=== PATIENT | male | born 1965 | race Caucasian/White ===

== ENCOUNTER 2020-07-08 06:21 | Inpatient (IN) | payer BC ==
[2020-07-08] VITALS (14 sets, daily range): BP systolic 112–145; BP diastolic 63–90
[~2020-07-08] VITALS: Ht 190.5 cm; Wt 104.5 kg
[2020-07-08] MEDS ORDERED: aspirin 81mg tab.chew PO ONE (06:30)
[2020-07-08 07:08] LABS: BASOPHILS # (AUTO) 0.1 X10'3 (0-0.2); BASOPHILS % (AUTO) 1.2 % (0-1); EOSINOPHILS # (AUTO) 0.2 X10'3 (0-0.9); EOSINOPHILS % (AUTO) 3.4 % (0-6); HEMATOCRIT 48.7 % (42.0-52.0); HEMOGLOBIN 16.6 g/dl (14.0-17.9); LYMPHOCYTES # (AUTO) 1.7 X10'3 (1.1-4.8); LYMPHOCYTES % (AUTO) 31.4 % (21-51); MEAN CORPUSCULAR HEMOGLOBIN 30.1 PG (27.0-31.0); MEAN CORPUSCULAR VOLUME 88.4 FL (78-98); MEAN PLATELET VOLUME 8.7 FL (7.4-10.4); MONOCYTES # (AUTO) 0.4 X10'3 (0-0.9); MONOCYTES % (AUTO) 8.1 % (2-12); NEUTROPHILS % (AUTO) 55.9 % (42-75); PLATELET COUNT 158 X10'3 (140-440); RED BLOOD COUNT 5.51 X10'6 (4.70-6.10); WHITE BLOOD COUNT 5.3 X10'3 (4.5-11.0)
[2020-07-08 07:14] LABS: ALANINE AMINOTRANSFERASE 28 U/L (12-78); ALBUMIN 4.2 G/DL (3.4-5.0); ALBUMIN/GLOBULIN RATIO 1.3 (1.1-1.5); ALKALINE PHOSPHATASE 99 IU/L (46-116); ANION GAP 9 (8-16); ASPARTATE AMINO TRANSFERASE 14 U/L (10-37); BILIRUBIN,TOTAL 0.4 MG/DL (0.1-1.0); BLOOD UREA NITROGEN 14 MG/DL (7-18); BUN/CREATININE RATIO 14.7 (5.4-32.0); CALCIUM 9.5 MG/DL (8.5-10.1); CHLORIDE 104 MMOL/L (99-107); CREATININE 0.95 MG/DL (0.60-1.10); GLUCOSE 113 MG/DL (70-104); POTASSIUM 3.9 MMOL/L (3.5-5.1); SODIUM 143 MMOL/L (135-145); TOTAL CARBON DIOXIDE 30.2 MMOL/L (24-32); TOTAL PROTEIN 7.4 G/DL (6.4-8.2); eGFR 83 ML/MIN
[2020-07-08 07:22] LABS: MAGNESIUM 1.8 MG/DL (1.5-2.4)
[2020-07-08] MEDS ORDERED: BENA1TAB88 PO (08:22)
[2020-07-08] MEDS ORDERED: normal saline 1000ml 1,000 ML IV SCH ×2 (08:50→14:20)
[2020-07-08] MEDS ORDERED: magnesium Cl slow-release 64mg tablet PO PRN (08:50)
[2020-07-08] MEDS ORDERED: mag hydrox/Alum hydrox/simeth 30ml oral suspension PO PRN (08:50)
[2020-07-08] MEDS ORDERED: magnesium hydroxide 30ml (MOM) UD suspension PO PRN (08:50)
[2020-07-08] MEDS ORDERED: potassium Cl 40MEQ/1/2NS 520ml 520 ML IV PRN ×2 (08:50)
[2020-07-08] MEDS ORDERED: magnesium 4gm in 100ml NS 100 ML IV PRN (08:50)
[2020-07-08] MEDS ORDERED: diphenhydrAMINE 25mg capsule PO PRN (08:50)
[2020-07-08] MEDS ORDERED: aminophylline 250mg/10ml inj. IV PRN (08:50)
[2020-07-08] MEDS ORDERED: acetaminophen 325mg tablet PO PRN ×2 (08:50)
[2020-07-08] MEDS ORDERED: magnesium 2GM in 50ml NS 50 ML IV PRN (08:50)
[2020-07-08] MEDS ORDERED: nitroGLYCERIN 0.4mg SUBLingual tab SL PRN (08:50)
[2020-07-08] MEDS ORDERED: potassium Cl 20 mEq SR tablet PO PRN ×2 (08:50)
[2020-07-08] MEDS ORDERED: metoprolol tartrate 1mg/ml inj IV PRN (08:50)
[2020-07-08] MEDS ORDERED: ondansetron/PF 4mg/2ml inj IV PRN ×2 (08:50→14:20)
[2020-07-08] MEDS ORDERED: bisacodyl 10mg suppository rectal RC PRN (08:50)
[2020-07-08] MEDS ORDERED: acetaminophen 650mg rectal suppository RC PRN (08:50)
[2020-07-08] MEDS ORDERED: regadenoson 0.4mg/5ml syringe IV PRN (08:50)
[2020-07-08 09:21] LABS: HEMOGLOBIN A1C 5.7 % (4.5-6.2)
[2020-07-08 10:05] LABS: CLARITY,URINE CLEAR (Clear); COLOR,URINE YELLOW (Yellow); GLUCOSE, URINE NEGATIVE (Neg); KETONES,URINE NEGATIVE (Neg); LEUKOCYTE ESTERASE ,URINE NEGATIVE (Neg); NITRITES, URINE NEGATIVE (Neg); OCCULT BLOOD,URINE TRACE-INTACT (Neg); PROTEIN,URINE NEGATIVE (Neg); UROBILINOGEN,URINE 0.2 E.U/dL (0.2-1.0)
[2020-07-08 10:08] LABS: UA COLLECTION TYPE NON-SPECIFIED
[2020-07-08 10:14] LABS: BACTERIA,URINE 1+ /HPF (Neg); RBC,URINE 0-2 /HPF (0-2); SQUAMOUS EPITHELIAL CELL,UR FEW /LPF (FEW); WBC,URINE 0-4 /HPF (0-4)
--- NOTE | 2020-07-08 10:18 | NUR ---
Reported 3 hour trop result of 20.[address] Galindo.
[2020-07-08] MEDS ORDERED: heparin 25,000 UNIT/250ml bag 250 ML IV SCH ×2 (10:20→10:45)
[2020-07-08] MEDS: atorvastatin 20mg tablet PO SCH (10:20)
[2020-07-08] MEDS ORDERED: heparin 10,000 units/1 ML INJ IV PRN ×2 (10:20→10:45)
[2020-07-08] MEDS ORDERED: heparin 10,000 units/1 ML INJ IV ONE ×2 (10:20→10:45)
[2020-07-08] MEDS: tirofiban 5mg in NS 100mL 100 ML IV SCH ×2 (11:13→12:40)
--- NOTE | 2020-07-08 11:18 | NUR ---
Pt at this time states no chest pain at this time. Pt stated chest pain resided two hours ago 3/10 pressure on left side of chest.
[2020-07-08 11:44] LABS: PARTIAL THROMBOPLASTIN TIME 131 SECONDS (22-32)
--- NOTE | 2020-07-08 11:46 | NUR ---
Received report from TERENCE Cuenca from ED. Awaiting patient arrival to room 3014A.
[2020-07-08] MEDS ORDERED: fentaNYL/PF 50MCG/1 ML 2ML syringe ONE (12:45)
[2020-07-08] MEDS ORDERED: midazolam 1 mg/ML 2ml injection ONE ×2 (12:45→13:23)
[2020-07-08] MEDS ORDERED: LIDOcaine 1% (10mg/ml)w/preservative injection 20ml MDV ONE (12:45)
[2020-07-08] MEDS ORDERED: nitroGLYCERIN-Tridil 50MG/D5W 250 ML IV ONE (12:45)
[2020-07-08] MEDS ORDERED: verapamil 2.5 mg/ml inj IV ONE (12:45)
[2020-07-08] MEDS ORDERED: heparin 1,000unit/ml 10ml vial 10 ML ONE (12:46)
[2020-07-08] MEDS ORDERED: iohexol 350MG/ML 100ml bottle IV ONE (12:46)
--- NOTE | 2020-07-08 12:55 | NUR ---
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
[2020-07-08] MEDS ORDERED: diphenhydrAMINE 50 mg/ml inj ONE (13:08)
--- NOTE | 2020-07-08 13:08 | NUR ---
Paged Dr. Galindo regarding critical result of 6hr. trop 51.06 PAGER ID: [phone] MESSAGE: [phone]. [place]. Critical results of 6hr trop 51.06. Patient at photo lab technician now. Thank you. Paola PRATT x [phone]
[2020-07-08] MEDS ORDERED: HYDROcodone/acetaminophen 5mg/325mg tablet PO PRN (14:20)
[2020-07-08] MEDS ORDERED: proCHLORperazine 10 MG/2 ml inj IV PRN (14:20)
[2020-07-08] MEDS ORDERED: HYDROcodone/acetaminophen 10/325mg tab PO PRN (14:20)
[2020-07-08] MEDS ORDERED: OXAZEpam 15mg capsule PO PRN (14:20)
--- NOTE | 2020-07-08 18:43 | NUR ---
Problems reprioritized. Patient report given, questions answered & plan of care reviewed with TERENCE Tejeda. Patient stable at transfer of care.
--- NOTE | 2020-07-08 18:47 | NUR ---
[place] documentation: I have reviewed and agree with all interventions, assessments performed and documented by TERENCE Shearer.
--- NOTE | 2020-07-08 18:48 | NUR ---
[place] Medication Administration: For this medication-pass time frame, all medication were reviewed, dispensed, administered and documented per hospital policy by TERENCE Shearer.
--- NOTE | 2020-07-08 19:07 | NUR ---
Patient in room PCU 3014. I have received report from Paola PRATT and had the opportunity to ask questions and assume patient care.
[2020-07-08] MEDS: K and/or MAG REPLACEMENT MC SCH (20:00)
[2020-07-08] MEDS ORDERED: heparin, porcine 5000 units/ml vial SQ SCH (20:00)
--- NOTE | 2020-07-08 21:15 | NUR ---
Patient found to still have radial band in place on right wrist. Radial band removed, strong pulse, good sensation, and good movement, no bleeding, no hematoma.
[2020-07-09 02:00] VITALS: BP 130/79
[2020-07-09 06:00] VITALS: BP 119/79
--- NOTE | 2020-07-09 06:08 | NUR ---
Problems reprioritized. Patient report given, questions answered & plan of care reviewed with Paola PRATT and Loan PRATT.
[2020-07-09 06:31] LABS: BASOPHILS % (AUTO) 0.7 % (0-1); EOSINOPHILS # (AUTO) 0.1 X10'3 (0-0.9); EOSINOPHILS % (AUTO) 2.3 % (0-6); HEMATOCRIT 48.3 % (42.0-52.0); HEMOGLOBIN 16.4 g/dl (14.0-17.9); LYMPHOCYTES # (AUTO) 1.9 X10'3 (1.1-4.8); LYMPHOCYTES % (AUTO) 31.1 % (21-51); MEAN CORPUSCULAR HEMOGLOBIN 29.9 PG (27.0-31.0); MEAN CORPUSCULAR HGB CONC 33.9 g/dL (33.0-36.5); MEAN CORPUSCULAR VOLUME 88.3 FL (78-98); MEAN PLATELET VOLUME 8.7 FL (7.4-10.4); MONOCYTES # (AUTO) 0.5 X10'3 (0-0.9); MONOCYTES % (AUTO) 7.6 % (2-12); NEUTROPHILS # (AUTO) 3.6 X10'3 (1.8-7.7); NEUTROPHILS % (AUTO) 58.3 % (42-75); PLATELET COUNT 152 X10'3 (140-440); RED BLOOD COUNT 5.47 X10'6 (4.70-6.10); RED CELL DISTRIBUTION WIDTH 13.3 % (11.5-14.5); WHITE BLOOD COUNT 6.1 X10'3 (4.5-11.0)
--- NOTE | 2020-07-09 06:34 | NUR ---
Patient in room PCU 3014. I have received report from TERENCE Tejeda and had the opportunity to ask questions and assume patient care. Patient awake in bed and in no acute distress.
[2020-07-09 06:50] LABS: ALANINE AMINOTRANSFERASE 34 U/L (12-78); ALBUMIN 3.7 G/DL (3.4-5.0); ALBUMIN/GLOBULIN RATIO 1.2 (1.1-1.5); ALKALINE PHOSPHATASE 89 IU/L (46-116); ANION GAP 7 (8-16); ASPARTATE AMINO TRANSFERASE 55 U/L (10-37); BILIRUBIN,TOTAL 0.8 MG/DL (0.1-1.0); BLOOD UREA NITROGEN 11 MG/DL (7-18); BUN/CREATININE RATIO 12.8 (5.4-32.0); CALCIUM 8.8 MG/DL (8.5-10.1); CHLORIDE 104 MMOL/L (99-107); CHOL/HDL RATIO 3.6 (0.00-4.99); CHOLESTEROL 189 MG/DL (0-200); CREATININE 0.86 MG/DL (0.60-1.10); GLUCOSE 99 MG/DL (70-104); HDL CHOLESTEROL 52 MG/DL (35-60); LDL CHOLESTEROL 119 MG/DL (50-100); POTASSIUM 4.1 MMOL/L (3.5-5.1); SODIUM 139 MMOL/L (135-145); TOTAL CARBON DIOXIDE 28.1 MMOL/L (24-32); TOTAL PROTEIN 6.8 G/DL (6.4-8.2); TRIGLYCERIDES 117 MG/DL (20-135); eGFR > 90 ML/MIN
[2020-07-09] MEDS: atorvastatin 20mg tablet PO SCH (07:30)
[2020-07-09] MEDS ORDERED: HYDROchlorothiazide 12.5mg capsule PO SCH (08:00)
[2020-07-09] MEDS: K and/or MAG REPLACEMENT MC SCH (08:00)
[2020-07-09] MEDS ORDERED: lisinopril 20mg tablet PO SCH (08:00)
[2020-07-09 10:00] VITALS: BP 113/76
[2020-07-09] MEDS ORDERED: ASPI-611 PO (10:19)
[2020-07-09] MEDS ORDERED: NITR0.4T51 SL (10:19)
[2020-07-09] MEDS ORDERED: ATOR20TA66 PO (10:19)
--- NOTE | 2020-07-09 10:34 | NUR ---
Spoke with MD clarifying patients allergy to iodine. Md would like to have chest CT if negative patient will be able to be discharged.
--- NOTE | 2020-07-09 11:28 | NUR ---
Orders for CTA chest, and overnight prep, and DC VQ scan put in per Dr. Galindo.
[2020-07-09] MEDS ORDERED: pantoprazole 40 MG vial IV ONE (13:25)
[2020-07-09 15:00] VITALS: BP 132/64
[2020-07-09 15:03] LABS: D-DIMER < 0.19 MG/L FEU (0-0.50)
--- NOTE | 2020-07-09 16:51 | NUR ---
[place] documentation: I have reviewed and agree with all interventions, assessments performed and documented by TERENCE Cates.
--- NOTE | 2020-07-09 16:52 | NUR ---
[place] Medication Administration: For this medication-pass time frame, all medication were reviewed, dispensed, administered and documented per hospital policy by TERENCE Cates.
--- NOTE | 2020-07-09 17:25 | NUR ---
Patient stable for discharge per MD orders. All discharge instructions reviewed and questions answered appropriately. Belongings collected and sent with patient. New prescriptions were e-scripted to pharmacy. Patient will call follow up appointment with Dr. Bernabe and with his PCP when he gets home. PIV x2 discontinued and cannula intact. quality assurance monitor chassis discontinued. Patient wheeled down to lobby and left via private vehicle.
[2020-07-09] MEDS ORDERED: prednisone 10mg tablet PO PRN (21:30)
[2020-07-09] MEDS ORDERED: diphenhydrAMINE 25mg capsule PO ONE (21:30)
[2020-07-10] MEDS ORDERED: pantoprazole 40 MG vial IV SCH (08:00)
--- NOTE | 2020-07-10 15:31 | NUR ---
CASE MANAGEMENT DISCHARGE FOLLOW UP: Spoke with pt via telephone. Reports that he is doing just fine; denies CP, SOB, dizziness, nausea, diaphoresis. Verbalizes understanding of s/sx requiring further evaluation/emergent assistance. Verbalizes understanding of new and current medications. Verbalizes compliance with MD discharge instructions. Verbalizes understanding of the importance in making/keeping follow-up appointments, will call to set up tomorrow. States no further questions/concerns at this time.
== END 2020-07-09 17:36 | disposition home or self-care (01) | DRG 287 ==
LOC: ER 06:22 → ED HOLD 08:47 → PCU 3S 12:05
PROVIDERS: ADMIT Family Medicine; ATTEND Family Medicine
PROC: 4A023N7 Measurement of Cardiac Sampling and Pressure, Left Heart, Percutaneous Approach (ICD-10-PCS; principal; 2020-07-08)
PROC: B2111ZZ Fluoroscopy of Multiple Coronary Arteries using Low Osmolar Contrast (ICD-10-PCS; 2020-07-08)
PROC: B2151ZZ Fluoroscopy of Left Heart using Low Osmolar Contrast (ICD-10-PCS; 2020-07-08)
DX: I20.9 Angina pectoris, unspecified (principal); I10 Essential (primary) hypertension; Z82.3 Family history of stroke; Z82.49 Family history of ischemic heart disease and other diseases of the circulatory system; Z83.3 Family history of diabetes mellitus; Z88.5 Allergy status to narcotic agent; Z91.013 Allergy to seafood; Z79.899 Other long term (current) drug therapy
CPT/HCPCS: 36415; 71045; 71250; 80053; 80061; 81001; 83036; 83735; 83880; 84443; 84484; 85025; 85379; 85610; 85730; 87081; 93005; 93306; 93458; 96374; 99152; 99285; A4620; A9500; C1769; C1894; C9113; G0378; J1200; J1644; J2001; J2250; J3010; J3246; J3490; J7030; Q9967